=== PATIENT | female | born 1990 | race Caucasian/White ===

== ENCOUNTER 2020-01-23 10:29 | Emergency (ER) | payer OTHER ==
[~2020-01-23] VITALS: Ht 157.5 cm; Wt 54.5 kg
[2020-01-23] MEDS ORDERED: BCP PO (10:36)
[2020-01-23] MEDS ORDERED: NS 1,000 ML IV ONE (11:00)
[2020-01-23 11:16] LABS: BASO # 0.1 10^3/uL (0.0-0.2); BASO % 0.9 % (0.0-1.0); EOS # 0.1 10^3/uL (0.0-0.5); HEMOGLOBIN 15.1 g/dl (12.0-15.5); LYMPH # 1.4 10^3/uL (1.5-5.0); LYMPH % 17.4 % (24.0-44.0); MEAN CORPUSCULAR HEMOGLOBIN 32.3 pg (27.0-33.0); MEAN CORPUSCULAR HGB CONC 34.3 g/dl (32.0-36.5); MONO # 0.4 10^3/uL (0.0-0.8); MONO % 4.8 % (0.0-5.0); NEUTROPHILS # 6.1 10^3/uL (1.5-8.5); NEUTROPHILS % 75.5 % (36.0-66.0); PLATELET COUNT, AUTOMATED 298 10^3/uL (150-450); RED BLOOD COUNT 4.68 10^6/uL (4.00-5.40); WHITE BLOOD COUNT 8.1 10^3/uL (4.0-10.0)
[2020-01-23 11:44] LABS: ALBUMIN 4.2 GM/DL (3.2-5.2); BILIRUBIN,DIRECT 0.2 MG/DL (0.0-0.2); BILIRUBIN,TOTAL 0.6 MG/DL (0.2-1.0); TOTAL PROTEIN 7.3 GM/DL (6.4-8.2)
[2020-01-23] MEDS ORDERED: ISOVUE-370 76% 100ML VIAL As Ordered ONE (14:24)
[2020-01-23 14:48] VITALS: BP 107/62
--- NOTE | 2020-01-23 15:23 | REP ---
PELVIC ULTRASOUND: Real-time sonographic evaluation of the pelvis is performed utilizing transabdominal technique. The bladder measures 7.9 x 5.1 x 8.2 cm. Uterus measures 6.5 x 2.9 x 2.8 cm. Endometrial thickness 4 mm. There is no endometrial fluid collection. Ovaries are normal in size and echotexture, right ovary measuring 2.8 x 2.0 x 3.4 cm and left ovary 1.7 x 1.5 x 1.3 cm. There is no adnexal mass or free fluid. There is no evidence of ovarian torsion with duplex Doppler evaluation. IMPRESSION: Negative pelvic ultrasound as above. Electronically Signed by Elder Lomeli MD 01/23/2020 07:39 P
--- NOTE | 2020-01-23 15:47 | REP ---
CT ABDOMEN AND PELVIS WITH IV CONTRAST: Visualized lung bases are clear. The liver, spleen, adrenals, pancreas and kidneys are normal in appearance. There is no adenopathy. There is no free air. There is no bowel wall thickening. There is no evidence of appendicitis. No evidence of bowel obstruction. No pelvic mass is seen. There is trace free fluid in the pelvis which is likely physiologic. Urinary bladder is grossly unremarkable. IMPRESSION: Trace free fluid in the pelvis is likely physiologic. No acute abnormalities are seen. There is no evidence of appendicitis. Electronically Signed by Elder Lomeli MD 01/23/2020 07:39 P
== END 2020-01-23 14:52 | disposition home or self-care (01) ==
LOC: M ED 10:29
DX: S39.011A Strain of muscle, fascia and tendon of abdomen, initial encounter (principal); R10.31 Right lower quadrant pain; R10.32 Left lower quadrant pain; X58.XXXA Exposure to other specified factors, initial encounter; Y92.9 Unspecified place or not applicable; Y93.02 Activity, running; Y99.9 Unspecified external cause status; Z87.448 Personal history of other diseases of urinary system; Z87.42 Personal history of other diseases of the female genital tract; Z79.3 Long term (current) use of hormonal contraceptives
CPT/HCPCS: 74177; 76856; 80047; 80076; 81001; 83690; 84702; 85025; 93976; 96360; 96361; 99284; Q9967